=== PATIENT | male | born 2000 | race African-American/Black ===

== ENCOUNTER 2023-10-29 09:25 | Inpatient (IN) ==
[2023-10-29] MEDS ORDERED: Lactated Ringers 1000 ml BAG 1,000 ML IV ONE (09:42)
[2023-10-29 10:24] LABS: Hematocrit 26.8 % (38-53); Hemoglobin 8.9 g/dL (13.2-16.3); Mean Corpuscular Hemoglobin 31.1 pg (27-33); Mean Corpuscular Hgb Conc 33.1 g/dL (31-36); Mean Corpuscular Volume 93.9 fL (80-97); Mean Platelet Volume 8.4 fL (7.5-11.2); Platelet Count 459 10^3/uL (150-450); Red Blood Count 2.85 10^6/uL (4.06-5.63); Red Cell Distribution Width 13.6 % (12-17)
[2023-10-29 10:44] LABS: INR 1.18 (0.83-1.13)
[2023-10-29 10:47] LABS: Albumin/Globulin Ratio 1.7 (1-3); Creatinine, Serum 0.92 mg/dL (0.67-1.17); Direct Bilirubin 0.7 mg/dL (0.03-0.18); Indirect Bilirubin 4.6 mg/dL (0.3-1.0); Potassium 3.7 mmol/L (3.5-5.0); Total Bilirubin 5.3 mg/dL (0.2-1.0); eGFR CKD-EPI 120.6 (>60)
[2023-10-29 11:12] LABS: ABS Basophils 0.2 10^3/uL (0.0-0.1); ABS Eosinophils 0.2 10^3/uL (0.0-0.5); ABS Lymphocytes 2.9 10^3/uL (1.0-4.8); ABS Monocytes 1.3 10^3/uL (0.0-1.1); ABS Neutrophils 10.5 10^3/uL (1.5-7.6); ABS Nucleated RBC 0.02 10^3/ul; Eosinophil % 1.2 %; Large Platelets Present; Lymphocyte % 19.1 %; Nucleated Red Blood Cells % 0.1 %/100WBC (0.0-0.8); Polychromasia 1+
[2023-10-29 11:17] LABS: Corrected Retic Count 3.6 % (0.5-1.5); Hematocrit for Retic CNT 25.9 % (38-53); Immature Retic Fraction 0.72; RBC Retic Count 2.76 10^6/ul (4.06-5.63)
[2023-10-29 11:29] LABS: Urine Appearance Clear; Urine Bilirubin Negative (Negative); Urine Blood 1+ (Negative); Urine Color Amber; Urine Glucose Negative (Negative); Urine Ketones Negative (Negative); Urine Nitrite Negative (Negative); Urine Protein 2+(100 mg/dL) (Negative); Urine Specific Gravity 1.023 (1.002-1.030); Urine Urobilinogen Negative (Negative)
[2023-10-29 11:56] LABS: Hepatitis B Surface Antigen Nonreactive (Nonreactive)
[2023-10-29 12:02] LABS: Urine Bacteria Absent (Absent); Urine Red Blood Cell Trace(0-2/hpf) (Absent); Urine Squamous Epithelial Cell Present (Absent); Urine White Blood Cell Trace(0-5/hpf) (Absent)
[2023-10-29 12:02] LABS: Hepatitis A Ab IgM Negative (Negative)
[2023-10-29 12:03] LABS: Hepatitis B Core IgM Nonreactive (Nonreactive)
[2023-10-29 12:04] LABS: High Sensitivity Troponin 1 Hr 9 pg/mL (<20)
[2023-10-29 12:13] LABS: Hepatitis C Antibody Negative (Negative)
[2023-10-29 14:42] LABS: HIV 4th Generation Nonreactive (Nonreactive)
[2023-10-29] MEDS ORDERED: Iohexol 350 (CONTRAST) 500 ML MDV IV ONE (19:23)
[2023-10-29 19:33] LABS: Hematocrit 23.6 % (38-53); Mean Corpuscular Hemoglobin 31.4 pg (27-33); Mean Corpuscular Hgb Conc 33.7 g/dL (31-36); Mean Corpuscular Volume 93.1 fL (80-97); Mean Platelet Volume 7.9 fL (7.5-11.2); Platelet Count 444 10^3/uL (150-450); Red Blood Count 2.53 10^6/uL (4.06-5.63); Red Cell Distribution Width 13.9 % (12-17); White Blood Count 17.8 10^3/uL (3.6-10.2)
[2023-10-29 19:56] LABS: Uric Acid 4.8 mg/dL (4.4-7.6)
[2023-10-29 21:13] LABS: ABS Basophils 0.2 10^3/uL (0.0-0.1); ABS Eosinophils 0.2 10^3/uL (0.0-0.5); ABS Lymphocytes 4.5 10^3/uL (1.0-4.8); ABS Monocytes 1.8 10^3/uL (0.0-1.1); ABS Neutrophils 11.1 10^3/uL (1.5-7.6); ABS Nucleated RBC 0.03 10^3/ul; Anisocytosis 2+; Eosinophil % 1.3 %; Hypochromasia 1+; Lymphocyte % 25.4 %; Nucleated Red Blood Cells % 0.2 %/100WBC (0.0-0.8); Polychromasia 3+
[2023-10-29] MEDS ORDERED: Heparin 5000 UNITS/ML 1 mL VIAL IV SCH (22:00)
[2023-10-29] MEDS: Heparin DRIP 25,000 UNITS BAG 25,000 UNITS/250 ML BAG IV SCH (22:01)
[2023-10-30 05:54] LABS: Ferritin 1409.3 ng/mL (24-336)
[2023-10-30 07:11] LABS: ABS Basophils 0.2 10^3/uL (0.0-0.1); ABS Eosinophils 0.3 10^3/uL (0.0-0.5); ABS Lymphocytes 4.8 10^3/uL (1.0-4.8); ABS Monocytes 1.3 10^3/uL (0.0-1.1); ABS Neutrophils 9.3 10^3/uL (1.5-7.6); ABS Nucleated RBC 0.04 10^3/ul; Eosinophil % 1.7 %; Hematocrit 24.3 % (38-53); Hemoglobin 8.1 g/dL (13.2-16.3); Lymphocyte % 30.5 %; Mean Corpuscular Hemoglobin 31.7 pg (27-33); Mean Corpuscular Hgb Conc 33.6 g/dL (31-36); Mean Corpuscular Volume 94.5 fL (80-97); Nucleated Red Blood Cells % 0.3 %/100WBC (0.0-0.8); Platelet Count 429 10^3/uL (150-450); Red Blood Count 2.57 10^6/uL (4.06-5.63); White Blood Count 15.9 10^3/uL (3.6-10.2)
[2023-10-30 07:27] LABS: Calcium 9.5 mg/dL (8.6-10.3); Creatinine, Serum 0.86 mg/dL (0.67-1.17); Magnesium 2.1 mg/dL (1.9-2.7); Potassium 3.6 mmol/L (3.5-5.0); eGFR CKD-EPI 125.6 (>60)
[2023-10-30 09:06] LABS: RBC Parasite Smear POSITIVE (No Parasite)
[2023-10-30] MEDS: Azithromycin 500 mg/250 ml NS 500 MG/250 ML BAG IVPB SCH (10:32)
[2023-10-30] MEDS: Heparin DRIP 25,000 UNITS BAG 25,000 UNITS/250 ML BAG IV SCH (16:29)
[2023-10-31 06:37] LABS: ABS Basophils 0.1 10^3/uL (0.0-0.1); ABS Eosinophils 0.3 10^3/uL (0.0-0.5); ABS Lymphocytes 3.7 10^3/uL (1.0-4.8); ABS Neutrophils 5.8 10^3/uL (1.5-7.6); ABS Nucleated RBC 0.07 10^3/ul; Corrected Retic Count 5.1 % (0.5-1.5); Eosinophil % 2.4 %; Hematocrit 24.1 % (38-53); Hematocrit for Retic CNT 24.1 % (38-53); Hemoglobin 8.2 g/dL (13.2-16.3); Immature Retic Fraction 0.63; Lymphocyte % 34.4 %; Mean Corpuscular Hemoglobin 32.5 pg (27-33); Mean Corpuscular Hgb Conc 33.9 g/dL (31-36); Mean Corpuscular Volume 95.8 fL (80-97); Mean Platelet Volume 8.2 fL (7.5-11.2); Nucleated Red Blood Cells % 0.6 %/100WBC (0.0-0.8); Platelet Count 426 10^3/uL (150-450); RBC Retic Count 2.52 10^6/ul (4.06-5.63); Red Blood Count 2.52 10^6/uL (4.06-5.63); Red Cell Distribution Width 14.9 % (12-17); White Blood Count 10.8 10^3/uL (3.6-10.2)
[2023-10-31 07:02] LABS: Calcium 9.5 mg/dL (8.6-10.3); Creatinine, Serum 0.82 mg/dL (0.67-1.17); Magnesium 2.1 mg/dL (1.9-2.7); Phosphorus 4.7 mg/dL (2.5-5.0); eGFR CKD-EPI 127.4 (>60)
[2023-10-31] MEDS ORDERED: Pneumococcal Vac 23-Polyvalent IM ONE (09:00)
[2023-10-31] MEDS ORDERED: Influenza vaccine *QUAD* *2023-24* 0.5 ML SYRINGE IM ONE (09:00)
[2023-10-31] MEDS: Azithromycin 500 mg/250 ml NS 500 MG/250 ML BAG IVPB SCH (11:06)
[2023-10-31 14:05] VITALS: BP 133/84
[2023-10-31 16:22] LABS: Anaplasma phagocytophilum Negative (Negative); B. miyamotoi PCR, B Negative (Negative); Babesia divergens/MO-1 Negative (Negative); Babesia ducani Negative (Negative); Ehrlichia chaffeensis Negative (Negative); Ehrlichia ewingii/canis Negative (Negative); Ehrlichia muris eauclairensis Negative (Negative)
[2023-11-02 14:22] LABS: CMV DNA DETECT/QT, P Undetected IU/mL (Undetected)
[2023-11-03 12:31] LABS: EBV Capsid Ag IgG Ab Positive (Negative); EBV Capsid Ag IgM Ab Negative (Negative); Epstein-Barr Nuclear Antigen Positive (Negative)
== END 2023-10-31 16:00 | disposition home or self-care (01) | DRG 660 ==
LOC: ED 09:25 → EDHOLD 09:25 → SUATTDRO 20:24 → MED 10-30 07:52
PROVIDERS: ADMIT Student in an Organized Health Care Education/Training Program; ATTEND Internal Medicine